=== PATIENT | male | born 1935 | race Caucasian/White ===

== ENCOUNTER 2017-10-24 12:15 | Inpatient (IN) | payer MEDICARE, BC ==
[2017-10-24] VITALS (10 sets, daily range): BP systolic 96–142; BP diastolic 72–93; BMI 28.8
[~2017-10-24] VITALS: Ht 172.7 cm; Wt 85.5 kg
--- NOTE | ~2017-10-24 | CN ---
PATIENT NAME:THOM OVALLES MEDICAL RECORD: [id number] : 33 LOCATION:CHANTELLED.2313 ADMIT DATE: 10/24/17 ACCOUNT: [id number] CONSULTING PHYSICIAN: ANNE MARIE FAN MD REFERRING PHYSICIAN: EAGLE DORADO MD DATE OF CONSULTATION: 10/25/2017 DIAGNOSES: 1. Atrial fibrillation with rapid ventricular response. 2. Respiratory failure. 3. Pneumonia. HISTORY: This is a gentleman who presents with shortness of breath, dyspnea on exertion, found to have bilateral airspace disease compatible with pneumonia. He has also been in atrial fibrillation with rapid ventricular response. He was placed on Cardizem as well as IV Cordarone as well as IV metoprolol. His rate is in the 110 range with the atrial fibrillation. There is no history of atrial fibrillation. He had an echocardiogram revealing left atrial size of only 3.5. Normal ejection fraction at 50% range. No significant valvular heart disease. PHYSICAL EXAMINATION: GENERAL APPEARANCE: Well-nourished, well-developed, appears stated age. Level of distress, comfortable. PSYCHIATRIC: Mental status, alert, normal affect. Orientation, oriented to time, place and person. EYES: Lids and conjunctiva, noninjected. No discharge, no pallor. ENT: Lips, teeth, gums, normal dentition. Oropharynx, no cyanosis, no pallor. NECK: Carotid arteries, bilateral normal upstroke, no bruits, no thrills. JUGULAR VEINS: No jugular venous pressure or distention. CERVICAL LYMPH NODES: Nontender, nonenlarged. THYROID: Not enlarged. Nontender. No nodules. LUNGS: Respiratory effort, unlabored. CHEST: Normal curvature. No thoracic deformity. No chest wall tenderness. Percussion, resonant. Auscultation, clear. No wheezes, no rales, no rhonchi. CARDIOVASCULAR: Heart rate is irregularly irregular, tachycardic, with atrial fibrillation. EXTREMITIES: No cyanosis, no edema. Peripheral pulses, full and equal in all extremities, except as noted. No bruits appreciated. ABDOMEN: Soft, nondistended. Normal aorta. No bruit. Nontender. No masses. Liver, nontender, no hepatomegaly. Spleen, nontender, no splenomegaly. MUSCULOSKELETAL: No joint tenderness. No joint swelling. No erythema. NEUROLOGICAL: Normal gait, normal strength, normal tone. SKIN: Warm and dry. OVERALL IMPRESSION: Atrial fibrillation, most likely secondary to the airspace disease. At this time, he is not taking p.o. due to 100% need for BiPAP. When we are able to give him p.o., would discontinue the Cordarone and try him on sotalol 120 b.i.d. This will give better rate control and allow us to discontinue IV metoprolol and IV Cardizem hopefully. TRANSINT:[id number] Voice Confirmation ID: [id number] DOCUMENT ID: [id number] CONSULT REPORT [id number] THOM OVALLES JEFFREY MD at 0956 CC: [id number] DICTATION DATE: 10/25/17 144 [employer]ER [employer] BLOCKER K[employer]ITTED GOODS: 10/25/171927 DIS IN 10/29/17 [address] [address] [place] [address]
--- NOTE | ~2017-10-24 | CN ---
PATIENT NAME:THOM OVALLES MEDICAL RECORD: [id number] : 33 LOCATION:NIRMAL.2313 ADMIT DATE: 10/24/17 ACCOUNT: [id number] CONSULTING PHYSICIAN: KAYDEN CONTRERAS MD REFERRING PHYSICIAN: EAGLE DORADO MD DATE OF CONSULTATION: 10/24/2017 ADDENDUM CHIEF COMPLAINT: Possible gallbladder disease. HISTORY OF PRESENT ILLNESS: I have been asked to see the patient to the possibility of him having cholecystitis. I have personally reviewed the ultrasound report. It revealed a normal size common duct. The gallbladder and biliary tree are normal. There is no evidence of acalculous cholecystitis. No gallbladder wall thickening. I do not find a reason for operative intervention in this patient. He has recently been made a DO NOT RESUSCITATE by his family members. I spoke with the family members. His abdomen is nontender. He has a quite labored breathing. He is in atrial fibrillation with an uncontrolled rapid ventricular response. It appears that he does not have long to live. Nothing aggravates. Nothing alleviates. He is unable to provide me with any history or review of systems due to the severity of his illness. This is a consultation note addendum. For the typed portion of the consult note, please see the chart. This would include the past medical and surgical history, current medications, allergies, social history as well as a family history. REVIEW OF SYSTEMS: Unobtainable from the patient due to the severity of his illness. PHYSICAL EXAMINATION: GENERAL: The patient appears acutely ill. He does not appear chronically ill. VITAL SIGNS: Reviewed. EARS: External ears appear normal. EYES: Extraocular movements are intact. NECK: Trachea is midline. CHEST: Intercostal retractions are present. PULMONARY: Rhonchi are present bilaterally. Breathing is labored. ABDOMEN: Abdomen is protuberant. PSYCHIATRIC: Unable to evaluate. NEUROLOGIC: Unable to evaluate. EXTREMITIES: No peripheral cyanosis. INTEGUMENT: No rash. LYMPHATICS: No lymphangitic streaking of the exposed extremities. BACK: No thoracic kyphosis. No evidence of gallbladder disease and the patient has been made DNR. PLAN: I will see the patient on a p.r.n. basis. TRANSINT:[id number] Voice Confirmation ID: [id number] DOCUMENT ID: [id number] CONSULT REPORT [id number] JOSRTHOMKAYDEN RUBI MD at 1158 CC: [id number] DICTATION DATE: 10/25/17 165 ACCOUNT ENGINEER: 10/25/176 DIS IN 10/29/17 [address] [place] [address]
--- NOTE | ~2017-10-24 | OP ---
PATIENT NAME: THOM OVALLES MEDICAL RECORD: [id number] :33 LOCATION:[facility] D.2313 ADMISSION DATE:10/24/17 SURGEON: JAVIER CONTRERAS MD DATE OF OPERATION: 10/25/2017 PREOPERATIVE DIAGNOSES: 1. Lack of adequate peripheral IV access. 2. Atrial fibrillation with rapid ventricular response. 3. Respiratory distress. POSTOPERATIVE DIAGNOSES: 1. Lack of adequate peripheral IV access. 2. Atrial fibrillation with rapid ventricular response. 3. Respiratory distress. PROCEDURE: Placement of internal jugular 16 cm triple-lumen central venous catheter. SURGEON: Javier Contreras MD LITHOGRAPHIC ETCHER: None. BLOOD LOSS: Minimal. ANESTHESIA: Local. COMPLICATIONS: None. The risks, possible complications, and alternatives to procedure were explained. A consent form was signed. OPERATIVE PROCEDURE: The patient was seen in his ICU bed. He was positioned in the Trendelenburg position. The left neck was sterilely prepped and draped. Local anesthetic was used to infiltrate the skin and subcutaneous tissues at the base of the left neck. I attempted to percutaneously access the left internal jugular vein, was unable to do so initially. I brought on a sterile ultrasound probe and was able to localize the left internal jugular vein, which I was able to percutaneously access easily. A guidewire passed easily. A small skin yuki was accomplished. A vessel dilator was used to dilate a subcutaneous tract. A 16 cm triple lumen central venous catheter was inserted into the hub. It was sutured in place times 3. All lumens flushed easily and aspirated dark, nonpulsatile blood. A stat portable chest x-ray was obtained. I will see the patient on a p.r.n. basis. TRANSINT:[id number] Voice Confirmation ID: [id number] DOCUMENT ID: [id number] OPERATIVE REPORT [id number] THOM OVALLES JAVIER CONTRERAS MD at 1158 CC: [id number] DICTATION DATE: 10/25/17 170 LABORER ORCHARD: 10/25/172201 DIS IN 10/29/17 [facility] [address] [place] [address]
--- NOTE | ~2017-10-24 | EC ---
PATIENT:THOM OVALLES DATE OF SERVICE: 10/24/17 SEX: M MEDICAL RECORD: [id number] DATE OF : 34 LOCATION:[facility] D231 AGE OF PATIENT: 82 ADMISSION DATE: 10/24/17 REFERRING PHYSICIAN: INTERPRETING PHYSICIAN: ANNE MARIE PHELPS MD ECHOCARDIOGRAM REPORT ECHO CHARGES 4 ECHO COMPLETE Date: 10/25 CLINICAL DIAGNOSIS: CHF ECHOCARDIOGRAPHIC MEASUREMENTS (adult normal given) AC root (d.<3.7cm) 3.2 cm LV Septum d (<1.2 cm> 1.2 cm Valve Excursion 1.8 cm LV Septum (systole) 1.5 cm Left Atria (s.<4.0cm> 3.5 cm LVPW d(<1.2cm) 1.3 cm RV (d.<2.3cm) 36.9 cm LVPW (sytole) 1.7 cm LV diastole(<5.6CM) 4.3 cm MV E-F(>70mm/sec) cm LV systole 3.4 cm LVOT Diameter 1.8 cm MV exc.(>10mm) 1.7 cm Est.ejection fraction (50-75%) % DOPPLER: LVIT cm/sec A cm/sec E cm/sec LA cm/sec RVSP 26 mmHg LVOT 122 cm/sec AOP1/2T m/s Asc. 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 Phelps TAPE# PACS Pericardial Effusion N DATE OF SERVICE: 10/25/2017 Echocardiogram FINDINGS: 1. Left ventricular chamber size is within normal limits. Left ventricular systolic function is normal. Overall ejection fraction estimated at 55%. 2. Left atrium is within normal limits at 3.5 cm. Right atrium and right ventricular chamber sizes are mildly dilated. 3. Valvular structures have normal structure and motion. ECHOCARDIOGRAM REPORT [id number] THOM OVALLES 4. Doppler interrogation reveals trace tricuspid regurgitation, no other valvular insufficiency or stenosis and pulmonary systolic pressure is estimated at 26 mmHg. 5. No evidence of pericardial effusion or left ventricular thrombus. TRANSINT:[id number] Voice Confirmation ID: [id number] DOCUMENT ID: [id number] ANNE MARIE PHELPS MD at 0956 CC: [id number] DICTATION DATE: 10/25/17 1335 TECHNICAL SALES SUPPORT MANAGER: 10/25/17 1826 DIS IN 10/29/17 [facility] [address] [id number]
[2017-10-24 18:12] LABS: BASOPHILS 0.4 % (0-2); EOSINOPHILS 0.1 % (0-7); HEMATOCRIT 37.3 % (42.0-54.0); HEMOGLOBIN 12.5 g/dL (13.5-17.5); IMMATURE GRANULOCYTES 0.5 % (0-5); LYMPHOCYTES 9.9 % (15-50); MCH 29.7 pg (26.0-34.0); MCHC 33.5 g/dL (31.0-37.0); MCV 88.6 fL (80.0-100.0); MEAN PLATELET VOLUME 10.1 fL (7.4-10.4); NEUTROPHILS 81.1 % (40-80); PLATELET COUNT 142 10x3/uL (130-400); RBC 4.21 10x6/uL (4.20-6.10); RDW 14.5 % (11.5-14.5); WBC 7.6 10x3/uL (4.8-10.8)
[2017-10-24 18:20] LABS: % SATURATION 8 % (15-55); IRON 14 ug/dl (35-150); TOTAL IRON BIND CAPACITY 160 ug/dl (260-445); UNSAT IRON BIND CAPACITY 146 ug/dl (150-375)
[2017-10-24 18:36] LABS: ALBUMIN 2.5 g/dL (3.4-5.0); ALKALINE PHOSPHATASE 105 U/L (46-116); ALT (SGPT) 80 U/L (10-68); BILIRUBIN - TOTAL 1.92 mg/dL (0.2-1.3); CALC OSMOLALITY 275 mosm/kg (275-300); CALCIUM 7.7 mg/dL (8.5-10.1); CHLORIDE - SERUM 104 mmol/L (98-107); CREATININE - SERUM 0.8 mg/dL (0.6-1.3); FERRITIN 890 ng/mL (3-244); GLUCOSE 113 mg/dL (74-106); POTASSIUM - SERUM 3.4 mmol/L (3.5-5.1); PRO BNP 3322 pg/mL (0-450); PROTEIN - SERUM 6.2 g/dL (6.4-8.2); SODIUM 138 mmol/L (136-145); THYROID STIMULATING HORMONE 2.12 uIU/mL (0.36-3.74); UREA NITROGEN 11 mg/dL (7-18); eGFR NON AFRICAN AMERICAN > 90 mL/min (90-120)
[2017-10-24 23:17] LABS: HEMATOCRIT 35.6 % (42.0-54.0); HEMOGLOBIN 12.1 g/dL (13.5-17.5)
[2017-10-25] VITALS (24 sets, daily range): BP systolic 87–132; BP diastolic 57–93
[2017-10-25 00:04] LABS: APPEARANCE CLOUDY (CLEAR); BACTERIA NONE SEEN /hpf (NONE SEEN); BILIRUBIN NEGATIVE (NEGATIVE); COLOR PINK (YELLOW); EPITHELIAL CELLS 0-5 /hpf (0-5); GLUCOSE NEGATIVE (NEGATIVE); KETONE LARGE mg/dL (NEGATIVE); NITRITE NEGATIVE (NEGATIVE); PROTEIN 1+ mg/dL (NEGATIVE); RED CELL CAST RARE /lpf (NONE SEEN); RED CELLS - URINE >50 /hpf (0-5); WHITE CELLS - URINE RARE /hpf (0-5)
[2017-10-25 00:05] LABS: AMORPHOUS SEDIMENT <1+ /lpf (NONE SEEN)
[2017-10-25 05:27] LABS: BASOPHILS 0.5 % (0-2); EOSINOPHILS 0 % (0-7); HEMATOCRIT 33.1 % (42.0-54.0); HEMOGLOBIN 11.3 g/dL (13.5-17.5); IMMATURE GRANULOCYTES 0.3 % (0-5); LYMPHOCYTES 15.2 % (15-50); MCH 29.9 pg (26.0-34.0); MCHC 34.1 g/dL (31.0-37.0); MCV 87.6 fL (80.0-100.0); MEAN PLATELET VOLUME 10.3 fL (7.4-10.4); MONOCYTES 8.6 % (2-11); NEUTROPHILS 75.4 % (40-80); PLATELET COUNT 131 10x3/uL (130-400); RBC 3.78 10x6/uL (4.20-6.10); RDW 14.5 % (11.5-14.5); WBC 5.9 10x3/uL (4.8-10.8)
[2017-10-25 05:54] LABS: ALBUMIN 2.2 g/dL (3.4-5.0); ALKALINE PHOSPHATASE 100 U/L (46-116); ALT (SGPT) 74 U/L (10-68); BILIRUBIN - TOTAL 1.81 mg/dL (0.2-1.3); CALC OSMOLALITY 285 mosm/kg (275-300); CALCIUM 7.4 mg/dL (8.5-10.1); CARBON DIOXIDE 19.7 mmol/L (21.0-32.0); CHLORIDE - SERUM 107 mmol/L (98-107); CREATININE - SERUM 0.9 mg/dL (0.6-1.3); GLUCOSE 149 mg/dL (74-106); POTASSIUM - SERUM 3.3 mmol/L (3.5-5.1); PROTEIN - SERUM 5.3 g/dL (6.4-8.2); SODIUM 141 mmol/L (136-145); eGFR NON AFRICAN AMERICAN 85 mL/min (90-120)
[2017-10-25 05:56] LABS: UREA NITROGEN 19 mg/dL (7-18)
[2017-10-25 13:43] LABS: HEMOGLOBIN 11.1 g/dL (13.5-17.5)
[2017-10-25 21:48] LABS: HEMATOCRIT 31.6 % (42.0-54.0); HEMOGLOBIN 10.9 g/dL (13.5-17.5)
[2017-10-26] VITALS (24 sets, daily range): BP systolic 105–173; BP diastolic 68–109; Ht 172.7 cm; Wt 85.5 kg
[2017-10-26 05:37] LABS: BASOPHILS 0.3 % (0-2); EOSINOPHILS 0.3 % (0-7); HEMATOCRIT 32.4 % (42.0-54.0); IMMATURE GRANULOCYTES 0.7 % (0-5); LYMPHOCYTES 11.8 % (15-50); MCH 29.5 pg (26.0-34.0); MCV 86.9 fL (80.0-100.0); MEAN PLATELET VOLUME 10.3 fL (7.4-10.4); MONOCYTES 9.9 % (2-11); RBC 3.73 10x6/uL (4.20-6.10); RDW 14.4 % (11.5-14.5)
[2017-10-26 05:41] LABS: PLATELET COUNT 187 10x3/uL (130-400); WBC 7.5 10x3/uL (4.8-10.8)
[2017-10-26 05:56] LABS: ALKALINE PHOSPHATASE 117 U/L (46-116); ALT (SGPT) 65 U/L (10-68); CALC OSMOLALITY 287 mosm/kg (275-300); CALCIUM 7.7 mg/dL (8.5-10.1); CARBON DIOXIDE 23.6 mmol/L (21.0-32.0); CHLORIDE - SERUM 109 mmol/L (98-107); CREATININE - SERUM 0.7 mg/dL (0.6-1.3); GLUCOSE 138 mg/dL (74-106); MAGNESIUM - SERUM 2.1 mg/dL (1.8-2.4); PHOSPHOROUS 1.9 mg/dL (2.5-4.9); PROTEIN - SERUM 5.6 g/dL (6.4-8.2); SODIUM 142 mmol/L (136-145); UREA NITROGEN 21 mg/dL (7-18); eGFR NON AFRICAN AMERICAN > 90 mL/min (90-120)
[2017-10-26 15:40] LABS: HEMATOCRIT 31.3 % (42.0-54.0); HEMOGLOBIN 10.6 g/dL (13.5-17.5)
[2017-10-27] VITALS (23 sets, daily range): BP systolic 96–159; BP diastolic 68–115
[2017-10-27 00:46] LABS: HEMATOCRIT 33.6 % (42.0-54.0); HEMOGLOBIN 11.4 g/dL (13.5-17.5)
[2017-10-27 05:21] LABS: BASOPHILS 0.2 % (0-2); EOSINOPHILS 0.2 % (0-7); HEMATOCRIT 34.4 % (42.0-54.0); HEMOGLOBIN 11.7 g/dL (13.5-17.5); IMMATURE GRANULOCYTES 1.6 % (0-5); LYMPHOCYTES 13.4 % (15-50); MCH 29.5 pg (26.0-34.0); MCV 86.6 fL (80.0-100.0); MEAN PLATELET VOLUME 10.1 fL (7.4-10.4); NEUTROPHILS 75.6 % (40-80); PLATELET COUNT 282 10x3/uL (130-400); RBC 3.97 10x6/uL (4.20-6.10); RDW 14.5 % (11.5-14.5)
[2017-10-27 05:37] LABS: ALBUMIN 2.2 g/dL (3.4-5.0); ALKALINE PHOSPHATASE 115 U/L (46-116); ALT (SGPT) 58 U/L (10-68); BILIRUBIN - TOTAL 1.08 mg/dL (0.2-1.3); CALC OSMOLALITY 289 mosm/kg (275-300); CALCIUM 7.4 mg/dL (8.5-10.1); CARBON DIOXIDE 27.2 mmol/L (21.0-32.0); CHLORIDE - SERUM 106 mmol/L (98-107); CREATININE - SERUM 0.8 mg/dL (0.6-1.3); GLUCOSE 165 mg/dL (74-106); MAGNESIUM - SERUM 2.2 mg/dL (1.8-2.4); PHOSPHOROUS 1.7 mg/dL (2.5-4.9); POTASSIUM - SERUM 3.1 mmol/L (3.5-5.1); PRO BNP 1650 pg/mL (0-450); PROTEIN - SERUM 5.4 g/dL (6.4-8.2); SODIUM 143 mmol/L (136-145); THYROID STIMULATING HORMONE 1.29 uIU/mL (0.36-3.74); UREA NITROGEN 15 mg/dL (7-18); eGFR NON AFRICAN AMERICAN > 90 mL/min (90-120)
[2017-10-27 08:21] LABS: FOLATE (FOLIC ACID) - SERUM 15.9 ng/mL (>3.0)
[2017-10-27] MEDS ORDERED: METOPROLOL TART25 MG PO (09:35)
[2017-10-27] MEDS ORDERED: FLOMAX0.4 MG PO (09:36)
[2017-10-27] MEDS ORDERED: PROSCAR5 MG PO (09:38)
[2017-10-27] MEDS ORDERED: VITAMIN D250000 UNIT PO (09:38)
[2017-10-27] MEDS ORDERED: ARICEPT10 MG PO (09:39)
[2017-10-28] VITALS (25 sets, daily range): BP systolic 93–155; BP diastolic 59–102
[2017-10-28 04:12] LABS: BASOPHILS 0.1 % (0-2); EOSINOPHILS 0 % (0-7); HEMATOCRIT 33.9 % (42.0-54.0); HEMOGLOBIN 11.5 g/dL (13.5-17.5); IMMATURE GRANULOCYTES 2.1 % (0-5); LYMPHOCYTES 11.9 % (15-50); MCH 29.4 pg (26.0-34.0); MCHC 33.9 g/dL (31.0-37.0); MCV 86.7 fL (80.0-100.0); MEAN PLATELET VOLUME 9.9 fL (7.4-10.4); MONOCYTES 3.7 % (2-11); NEUTROPHILS 82.2 % (40-80); PLATELET COUNT 303 10x3/uL (130-400); RBC 3.91 10x6/uL (4.20-6.10); RDW 14.6 % (11.5-14.5)
[2017-10-28 04:13] LABS: WBC 7.1 10x3/uL (4.8-10.8)
[2017-10-28 04:36] LABS: ALKALINE PHOSPHATASE 96 U/L (46-116); ALT (SGPT) 44 U/L (10-68); BILIRUBIN - TOTAL 0.78 mg/dL (0.2-1.3); CALCIUM 7.6 mg/dL (8.5-10.1); CARBON DIOXIDE 29.3 mmol/L (21.0-32.0); CHLORIDE - SERUM 105 mmol/L (98-107); CREATININE - SERUM 0.7 mg/dL (0.6-1.3); MAGNESIUM - SERUM 2.3 mg/dL (1.8-2.4); PHOSPHOROUS 1.9 mg/dL (2.5-4.9); POTASSIUM - SERUM 3.4 mmol/L (3.5-5.1); PRO BNP 1774 pg/mL (0-450); PROTEIN - SERUM 5.8 g/dL (6.4-8.2); SODIUM 141 mmol/L (136-145); UREA NITROGEN 14 mg/dL (7-18); eGFR NON AFRICAN AMERICAN > 90 mL/min (90-120)
[2017-10-28 04:37] LABS: CALC OSMOLALITY 288 mosm/kg (275-300); GLUCOSE 231 mg/dL (74-106)
[2017-10-29] VITALS (14 sets, daily range): BP systolic 95–133; BP diastolic 57–87
[2017-10-29 04:55] LABS: BASOPHILS 0.1 % (0-2); EOSINOPHILS 0 % (0-7); HEMATOCRIT 33.1 % (42.0-54.0); HEMOGLOBIN 11.2 g/dL (13.5-17.5); IMMATURE GRANULOCYTES 1.4 % (0-5); LYMPHOCYTES 6.5 % (15-50); MCH 29.6 pg (26.0-34.0); MCHC 33.8 g/dL (31.0-37.0); MCV 87.6 fL (80.0-100.0); MEAN PLATELET VOLUME 9.9 fL (7.4-10.4); MONOCYTES 4.4 % (2-11); NEUTROPHILS 87.6 % (40-80); PLATELET COUNT 385 10x3/uL (130-400); RBC 3.78 10x6/uL (4.20-6.10); RDW 14.7 % (11.5-14.5); WBC 12.4 10x3/uL (4.8-10.8)
[2017-10-29 05:12] LABS: ALKALINE PHOSPHATASE 84 U/L (46-116); ALT (SGPT) 41 U/L (10-68); BILIRUBIN - TOTAL 0.69 mg/dL (0.2-1.3); CALCIUM 7.5 mg/dL (8.5-10.1); CARBON DIOXIDE 30.7 mmol/L (21.0-32.0); CHLORIDE - SERUM 104 mmol/L (98-107); CREATININE - SERUM 0.6 mg/dL (0.6-1.3); MAGNESIUM - SERUM 2.4 mg/dL (1.8-2.4); PHOSPHOROUS 2.1 mg/dL (2.5-4.9); PROTEIN - SERUM 5.6 g/dL (6.4-8.2); SODIUM 143 mmol/L (136-145); UREA NITROGEN 16 mg/dL (7-18); eGFR NON AFRICAN AMERICAN > 90 mL/min (90-120)
[2017-10-29 05:14] LABS: CALC OSMOLALITY 289 mosm/kg (275-300); GLUCOSE 171 mg/dL (74-106)
== END 2017-10-29 15:20 | disposition hospice, inpatient (51) | DRG 871 ==
LOC: D.ICU 12:15
PROVIDERS: Internal Medicine Nephrology
PROC: 5A09357 Assistance with Respiratory Ventilation, Less than 24 Consecutive Hours, Continuous Positive Airway Pressure (ICD-10-PCS; principal; 2017-10-25)
PROC: 05HM33Z Insertion of Infusion Device into Right Internal Jugular Vein, Percutaneous Approach (ICD-10-PCS; 2017-10-25)
DX: A41.9 Sepsis, unspecified organism (principal); G93.41 Metabolic encephalopathy; J69.0 Pneumonitis due to inhalation of food and vomit; J96.21 Acute and chronic respiratory failure with hypoxia; E43 Unspecified severe protein-calorie malnutrition; J44.1 Chronic obstructive pulmonary disease with (acute) exacerbation; J90 Pleural effusion, not elsewhere classified; N39.0 Urinary tract infection, site not specified; F05 Delirium due to known physiological condition; D50.9 Iron deficiency anemia, unspecified; Z66 Do not resuscitate; I95.9 Hypotension, unspecified; E87.6 Hypokalemia; I48.91 Unspecified atrial fibrillation; F03.90 Unspecified dementia, unspecified severity, without behavioral disturbance, psychotic disturbance, mood disturbance, and anxiety; R31.9 Hematuria, unspecified; R04.0 Epistaxis; Z87.891 Personal history of nicotine dependence

== ENCOUNTER 2017-10-29 15:20 | Inpatient (IN) | payer OTHER ==
[~2017-10-29] VITALS: Ht 172.7 cm; Wt 85.9 kg
[~2017-10-29 15:20] MED LIST: ARICEPT10 MG PO; FLOMAX0.4 MG PO; METOPROLOL TART25 MG PO; PROSCAR5 MG PO; VITAMIN D250000 UNIT PO
[2017-10-29 15:32] VITALS: BP 102/71; BMI 28.8
[2017-10-29 19:53] VITALS: BP 131/79
[2017-10-30 08:37] VITALS: BP 112/63
[2017-10-30 12:43] VITALS: BP 126/69
[2017-10-30 16:34] VITALS: BP 116/69
[2017-10-30 16:38] VITALS: Ht 172.7 cm; Wt 85.9 kg
[2017-10-30 20:08] VITALS: BP 124/73
[2017-10-31 09:05] VITALS: BP 109/75
[2017-10-31 20:00] VITALS: BP 119/77
[2017-11-01 08:00] VITALS: BP 137/79
[2017-11-01 08:57] VITALS: BP 137/79
[2017-11-01 20:00] VITALS: BP 113/72
[2017-11-02] VITALS: BP 109/58
[2017-11-02 08:27] VITALS: BP 129/76
[2017-11-02 20:00] VITALS: BP 133/69
[2017-11-03 09:15] VITALS: BP 156/79
[2017-11-03 20:00] VITALS: BP 108/59
[2017-11-04 09:30] VITALS: BP 146/75
[2017-11-04 20:00] VITALS: BP 149/87
[2017-11-05 08:55] VITALS: BP 107/74
[2017-11-05 21:00] VITALS: BP 137/71
[2017-11-06 09:52] VITALS: BP 108/67
[2017-11-06 22:50] VITALS: BP 102/63
== END 2017-11-07 05:47 | DRG 951 ==
LOC: D.ICU 15:20 → D.MS 15:20
DX: Z51.5 Encounter for palliative care (principal)